=== PATIENT | female | born 1945 | race Caucasian/White ===

== ENCOUNTER → 2020-08-18 | Outpatient (CLI) | payer OTHER | LOC: SJCVC 10:04 | PROVIDERS: ATTEND Internal Medicine | DX: R94.31 Abnormal electrocardiogram [ECG] [EKG] (principal); I51.7 Cardiomegaly; R06.00 Dyspnea, unspecified; R09.89 Other specified symptoms and signs involving the circulatory and respiratory systems; R01.1 Cardiac murmur, unspecified; I10 Essential (primary) hypertension; Z87.891 Personal history of nicotine dependence; Z72.89 Other problems related to lifestyle ==

== ENCOUNTER → 2020-09-16 | Outpatient (CLI) | payer OTHER ==
[~2020-09-16] VITALS: Ht 160 cm; Wt 79.5 kg
[~2020-09-16] MED LIST: ASA81BEC PO; LIPITOR 20 MG T20 M1 PO; LOSARTAN-HCTZ1 EAC3 PO; MULTIPLE VITAM1 EAC2 PO; VITAMIN C500 M2 PO
[2020-09-16 07:21] VITALS: BP 127/68
[2020-09-16 07:32] LABS: HEMATOCRIT 41.6 % (37.0-47.0); HEMOGLOBIN 14.3 gm/dL (12.0-15.0); MCH 33.5 pg (26.0-34.0); MCHC 34.3 g/dL (28.0-37.0); MCV 97.7 fL (80.0-100.0); RBC 4.26 mil/uL (4.20-5.00); RDW 13.1 % (10.5-14.5); WBC 8.2 thou/uL (4.0-11.0)
[2020-09-16 07:42] LABS: CALCIUM 9.5 mg/dL (8.5-10.1); CREATININE 0.8 mg/dL (0.6-1.0); POTASSIUM 3.4 mmol/L (3.5-5.1)
--- NOTE | 2020-09-16 12:36 | CATHLAB ---
[facility] [place] [address] INVASIVE PROCEDURE REPORT Name: RUBY PARDO Room #: REG [facility]#: [id number] Admission: 09/16/20 Attend Phys: Riki Diehl MD, Discharge: Date of : 47 Report #: [id number] THIS REPORT FOR: cc: Patrick Pickett Gregory DO Mancuso, Gerald M. MD [facility] ~ APPROVED REPORT Study performed: 09/16/2020 08:02:22 Patient Details Patient Status: Out-Patient Room #: The patient is a 75 year-old female Event Personnel Rigoberto Justice Milk Bottling Machine Operator, Jennifer Kaplan RN RN, Erin Ha RT(R)() Erin Tan Ja'net RTR Monitor, JessievilleCaitlin rick RTR Truck Crane Operator Helper Procedures Performed Right and Left Heart Cath w/or w/o Coronarie [id number] [facility] Art Access - R femoral artery* Jaime Access - R femoral vein Ascending Aortography Hemostasis w/ Mynx [id number] Initial Mod Sed Same Phys/QHP Gr5y [id number] Procedure Narrative The patient was brought electively to the Cardiac Catheterization Laboratory and was prepped and draped in a sterile manner. The Right Groin^ was infiltrated with 1% Lidocaine subcutaneous anesthesia. A Right Heart Catheterization was performed with a 7 Fr. [place] catheter and pressure were recorded. Cardiac outputs were obtained by the Thermal Dilution method. A PINNACLE 6FR Sheath #[id number] sheath was inserted into the RFA^. Coronary angiography was performed using coronary diagnostic catheters. The right coronary system was accessed and visualized with a 6FR 3DRC #[id number] catheter. The left coronary system was accessed and visualized with a JL4 catheter. The left ventricle was accessed and visualized with a PIGTAIL catheter. Left ventricular/Aortic Valve gradient assessed via catheter pullback. Left ventriculogram was performed in 30 degree projection. Closure device was deployed with a Fr MYNXGRIP 6/7F #[id number]. The patient tolerated the procedure well and there were no complications associated with the procedure. There was no hematoma. Intraoperative Conscious Sedation [address] [address] INVASIVE PROCEDURE REPORT Name: RUBY PARDO [id number] Admission: 09/16/20 Attend Phys: Riki Diehl, Discharge: Date of : 47 Report #: [id number] Sedation start time: 9:01 Case end Time: 9:37 Fentanyl 50 mcg Versed 1 mg Fluoro Time: 3.50 minutes Dose: DAP 6804.50 cGycm2 825 mGy Contrast Type and Amount: Omnipaque 135 ml Hemodynamics The right atrial mean pressure is 9 mmHg. The right ventricular pressure is 84/-7 mmHg. The pulmonary artery pressure is 50/7 mmHg with a mean of 25 mmHg. The mean pulmonary capillary wedge pressure is 15 mmHg. The aortic pressure is 130/56 mmHg with a mean of 83 mmHg. The left ventricular pressure is 172/3 mmHg with a mean of mmHg. The left ventricular end diastolic pressure is 25 mmHg. There was no gradient across the aortic valve upon pullback. The cardiac output using thermo method is 4.15 L/min. Conclusion 1. Successful right heart catheterization with cardiac output by thermodilution. See above hemodynamics. #2 normal left ventricular size and systolic function EF 60 to 65%. Severe aortic valve stenosis is noted. Pullback has 40 to 44 mmHg gradient. Noninvasively is calculated at 0.8 cm. #3 supravalvular aortogram reveals normal caliber aorta with mild aortic insufficiency. #4 relatively short left main giving rise to LAD and circumflex. #5 LAD and moderate ostial disease and calcification with mild irregularities extends to the apex. No high-grade lesion for intervention. #6 the least to 70% ostial circumflex OM lesion which bifurcates into a large OM and distal circumflex. Would be difficult for intervention continue to treat this medically. #7 moderately calcified and tortuous right coronary artery anatomically dominant moderate diffuse disease throughout proximal mid distal 60% range giving rise to a diffusely disease and smaller PDA JESSI. No indication for intervention here. Recommendations and plan: Continue aggressive risk factor modification. Patient appears to be euvolemic. The aortic valve was crossed with a pigtail catheter appears to have a gradient of approximately 40 to 44 mmHg. Moderate coronary disease as described above. [facility] [address] [place] [address] INVASIVE PROCEDURE REPORT Name: RUBY PARDO Room #: REG [facility]#: [id number] Admission: 09/16/20 Attend Phys: Riki Diehl, Discharge: Date of : 47 Report #: [id number] Further recommendations per Dr. Diehl who is treating vice president of software development. <ELECTRONICALLY SIGNED> By: Rigoberto Justice MD, FACC 09/16/20 1236 1236 1236 Rigoberto Justice MD, FACC /INF
--- NOTE | 2020-09-16 12:56 | NUR ---
PT COMPLAINS OF REDNESS TO BILATERAL LEGS AND HANDS. NO ITCHING, NO RAISED RASH. I INSTRUCTED PT TO TAKE BENADRYL WHEN SHE GETS HOME, AND EVERY 6-8 HOURSE NEEDED. IF RASH NO BETTER BY TOMORROW, PT TO CALL DR. MEYERS'S OFFICE. I CALLED DR MEYERS AND MADE HIM AWARE. HE AGREED WITH PLAN
== END | disposition home or self-care (01) ==
LOC: CATH 06:29
PROVIDERS: Internal Medicine Cardiovascular Disease; ATTEND Internal Medicine
DX: R94.39 Abnormal result of other cardiovascular function study (principal); I25.10 Atherosclerotic heart disease of native coronary artery without angina pectoris; I35.1 Nonrheumatic aortic (valve) insufficiency; I10 Essential (primary) hypertension; E78.5 Hyperlipidemia, unspecified; Z87.891 Personal history of nicotine dependence; Z98.890 Other specified postprocedural states; Z79.899 Other long term (current) drug therapy; Z82.49 Family history of ischemic heart disease and other diseases of the circulatory system

== ENCOUNTER → 2020-09-23 | Outpatient (CLI) | payer OTHER | LOC: SJCVCIMAG 09:58 → SJCVC 09:58 | PROVIDERS: ATTEND Internal Medicine | DX: I10 Essential (primary) hypertension (principal); I25.10 Atherosclerotic heart disease of native coronary artery without angina pectoris; R06.09 Other forms of dyspnea; E78.5 Hyperlipidemia, unspecified; R19.09 Other intra-abdominal and pelvic swelling, mass and lump; M79.661 Pain in right lower leg; Z87.891 Personal history of nicotine dependence; Z72.89 Other problems related to lifestyle; Z79.899 Other long term (current) drug therapy ==

== ENCOUNTER → 2020-10-21 | Outpatient (CLI) | payer OTHER | LOC: SJCVC 09:53 | PROVIDERS: ATTEND Internal Medicine | DX: R06.00 Dyspnea, unspecified (principal); R09.89 Other specified symptoms and signs involving the circulatory and respiratory systems; I08.0 Rheumatic disorders of both mitral and aortic valves; I65.23 Occlusion and stenosis of bilateral carotid arteries; I25.10 Atherosclerotic heart disease of native coronary artery without angina pectoris; E78.5 Hyperlipidemia, unspecified; I10 Essential (primary) hypertension; Z95.818 Presence of other cardiac implants and grafts; Z87.891 Personal history of nicotine dependence; Z72.89 Other problems related to lifestyle; Z79.899 Other long term (current) drug therapy ==

== ENCOUNTER → 2020-11-18 | Outpatient (CLI) | payer OTHER | LOC: SJCVC 09:39 | PROVIDERS: ATTEND Internal Medicine | DX: I10 Essential (primary) hypertension (principal); I25.10 Atherosclerotic heart disease of native coronary artery without angina pectoris; E78.5 Hyperlipidemia, unspecified; I34.0 Nonrheumatic mitral (valve) insufficiency; Z87.891 Personal history of nicotine dependence; Z79.899 Other long term (current) drug therapy; I65.23 Occlusion and stenosis of bilateral carotid arteries; Z72.89 Other problems related to lifestyle ==

== ENCOUNTER → 2021-03-24 | Outpatient (CLI) | payer OTHER | LOC: SJCVC 10:28 | PROVIDERS: ATTEND Internal Medicine | DX: I35.0 Nonrheumatic aortic (valve) stenosis (principal); I65.23 Occlusion and stenosis of bilateral carotid arteries; I25.10 Atherosclerotic heart disease of native coronary artery without angina pectoris; E78.5 Hyperlipidemia, unspecified; I10 Essential (primary) hypertension; Z79.899 Other long term (current) drug therapy; Z72.89 Other problems related to lifestyle; Z87.891 Personal history of nicotine dependence ==